=== PATIENT | female | born 1960 | race Caucasian/White ===

== ENCOUNTER 2024-02-21 14:27 | Emergency (ER) | payer OTHER, SELFPAY ==
[2024-02-21] VITALS (17 sets, daily range): BP systolic 118–165; BP diastolic 74–97; PULSE 62–72; TEMP 36.4; O2SAT 96–99; BMI 34.3
--- NOTE | 2024-02-21 14:42 | ECG_ITS ---
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
[2024-02-21 14:57] LABS: Basophils Percent Auto 0.5 % (0.2-2.0); Eosinophils Absolute Auto 0.1 10^3/uL (0.0-0.7); Eosinophils Percent Auto 1.3 % (0.9-7.0); Hematocrit 42.1 % (36.0-48.0); Hemoglobin 13.8 g/dL (12.0-16.0); Immature Granulocytes Abs Auto 0.01 10^3/uL (0.00-0.03); Immature Granulocytes Pct Auto 0.1 % (0.0-0.5); Lymphocytes Absolute Auto 2.9 10^3/uL (1.2-3.8); Mean Corpuscular HGB Conc 32.8 g/dL (29.9-35.2); Mean Corpuscular Hemoglobin 30.2 pg (26.7-34.0); Mean Corpuscular Volume 92.1 fL (81.0-99.0); Mean Platelet Volume 8.7 fL (9.5-13.5); Monocytes Absolute Auto 0.6 10^3/uL (0.3-0.8); Monocytes Percent Auto 7.5 % (1.7-12.0); Neutrophils Absolute Auto 4.8 10^3/uL (1.4-6.5); Neutrophils Percent Auto 56.6 % (43.0-75.0); Platelet Count 306 10^3/uL (150-450); Red Blood Count 4.57 10^6/uL (4.20-5.40); Red Cell Distribution Width 14.2 % (11.0-15.0); White Blood Count 8.5 10^3/uL (4.0-11.0)
--- NOTE | 2024-02-21 15:00 | ED_ITS ---
HPI - Medical Clearance General Chief complaint: Medical Clearance Stated complaint: POSSIBLE ANEURYSM PER LIFE LINE SCREENING Time Seen by Provider: 02/21/24 14:31 Source: patient Mode of arrival: walk-in Limitations: no limitations History of Present Illness HPI Narrative: The patient is coming to the ER after she had an outpatient study showing that she have abdominal aortic aneurysm, patient never had a study like this recently she had 1 almost more than 2 years ago. The patient denies any abdominal pain nausea vomiting She mentioned that she have sometimes cramping her left leg but right now she had no complaint Patient have history of smoking cigarettes she quit more than 10 years ago The patient have history of hypertension she has been taking medication regularly she has not been to her primary care doctor for a while Related Information Home Medications ?Medication ?Instructions ?Recorded ?Confirmed benazepril 20 mg tablet 20 mg PO DAILY 02/21/24 02/21/24 citalopram 40 mg tablet 40 mg PO DAILY 02/21/24 02/21/24 metoprolol tartrate 50 mg tablet 50 mg PO BID 02/21/24 02/21/24 Allergies Allergy/AdvReac Type Severity Reaction Status Date / Time No Known Drug Allergies Allergy Verified 02/21/24 14:34 Review of Systems ROS Status of ROS 10 or more systems reviewed and unremark able except as noted in history and below Exam Narrative Exam Narrative: Nurses notes and vital signs reviewed and patient is not hypoxic. General: Well-appearing and in no apparent distress. Skin: Warm, dry, no pallor noted. No rash. Head: Normocephalic, atraumatic. Neck: Supple, non-tender. Eye: Pupils are equal, round and EOMI. No scleral icterus. Ears, Nose, Mouth, and Throat: TM are clear, no nasal mucosal hypertrophy. Oral mucosa is moist, no posterior oropharynx erythema, uvula is mid-line Cardiovascular: Regular Rate and Rhythm without murmur, gallop or rub. Respiratory: No accessory muscle use or respiratory distress. Lungs are clear to auscultation, no wheezing, rales or rhonchi Chest Wall: no tenderness Back: No midline thoracic or lumbar vertebral tenderness. No CVA tenderness Musculoskeletal: normal ROM, no calf or popliteal tenderness, no lower extremity edema/swelling, patient have good anterior tibial pulse GI: Abdomen is soft, non-distended. Normal bowel sounds. No masses appreciated. No tenderness to palpation. No rebound, guarding, or rigidity noted. Neurological: A&O x4. No cranial nerve dysfunction observed. No truncal ataxia. Moves all extremities. Sensation intact. Psychiatric: Cooperative and interactive. Normal mood and affect. Constitutional Vital Signs, click to edit/add: Last Vital Signs Temp 97.5 F L 02/21/24 14:34 Pulse 67 02/21/24 16:50 Resp 25 H 02/21/24 16:50 BP 130/84 02/21/24 16:30 Pulse Ox 97 02/21/24 16:40 O2 Del Method Room Air 02/21/24 14:34 Course Vital Signs Vital signs: Vital Signs Temperature 97.5 F L 02/21/24 14:34 Pulse Rate 70 02/21/24 14:34 Respiratory Rate 18 02/21/24 14:34 Blood Pressure 165/94 H 02/21/24 14:34 Pulse Oximetry 98 02/21/24 14:34 Oxygen Delivery Method Room Air 02/21/24 14:34 Temperature 97.5 F L 02/21/24 14:34 Pulse Rate 67 02/21/24 16:50 Respiratory Rate 25 H 02/21/24 16:50 Blood Pressure 130/84 02/21/24 16:30 Pulse Oximetry 97 02/21/24 16:40 Oxygen Delivery Method Room Air 02/21/24 14:34 MDM - Medical Clearance MDM Narrative Medical decision making narrative: EKG showing sinus rhythm with a heart rate of [address] elevation or depression CBC chemistry showed no acute significant pathology the patient case was discussed with Dr. Boudreaux and vascular surgery and the plan was to get a CT angio of the abdomen that was done and the results showed 5.3 cm x 5.1 cm aortic aneurysm in the abdomen There was no acute symptom and there was no leak or any acute finding on the CAT scan the patient was to see the vascular surgeon Dr. Boudreaux on Patient otherwise will come back and is a new symptoms or concerns her blood pressure was controlled and she had no acute issue in the ER Lab Data Labs: Lab Results 02/21/24 Range/Units 14:49 WBC 8.5 (4.0-11.0) 10^3/uL RBC 4.57 (4.20-5.40) 10^6/uL Hgb 13.8 (12.0-16.0) g/dL Hct 42.1 (36.0-48.0) % MCV 92.1 (81.0-99.0) fL MCH 30.2 (26.7-34.0) pg MCHC 32.8 (29.9-35.2) g/dL RDW 14.2 (11.0-15.0) % Plt Count 306 (150-450) 10^3/uL MPV 8.7 L (9.5-13.5) fL Neut % (Auto) 56.6 (43.0-75.0) % Lymph % (Auto) 34.0 (20.5-60.0) % Daggett % (Auto) 7.5 (1.7-12.0) % Eos % (Auto) 1.3 (0.9-7.0) % Baso % (Auto) 0.5 (0.2-2.0) % Neut # (Auto) 4.8 (1.4-6.5) 10^3/uL Lymph # (Auto) 2.9 (1.2-3.8) 10^3/uL Daggett # (Auto) 0.6 (0.3-0.8) 10^3/uL Eos # (Auto) 0.1 (0.0-0.7) 10^3/uL Baso # (Auto) 0.0 (0.0-0.1) 10^3/uL Abs Immat Gran (auto) 0.01 (0.00-0.03) 10^3/uL Imm/Tot Granulo (auto) 0.1 (0.0-0.5) % Sodium 137 (136-145) mmol/L Potassium 4.2 (3.5-5.1) mmol/L Chloride 102 (98-107) mmol/L Carbon Dioxide 27.2 (21.0-32.0) mmol/L Anion Gap 12.0 BUN 21.0 H (7.0-18.0) mg/dL Creatinine 0.93 (0.55-1.02) mg/dL Est GFR ( Amer) >60 (>=60) Est GFR (Non-Af Amer) >60 (>=60) BUN/Creatinine Ratio 22.6 Glucose 110 H (74-106) mg/dL Calcium 8.9 (8.5-10.1) mg/dL Total Bilirubin 0.3 (0.2-1.0) mg/dL AST 22 (15-37) U/L ALT 28 (14-59) U/L Alkaline Phosphatase 73 (46-116) U/L Troponin I High Sens 5.6 (4.0-51.3) pg/mL Total Protein 7.1 (6.4-8.2) g/dL Albumin 3.6 (3.4-5.0) g/dL Globulin 3.5 g/dL Albumin/Globulin Ratio 1.0 Discharge Plan Discharge Stand Alone Forms: Work/School Release, Portal Instructions Chief Complaint: Medical Clearance Clinical Impression: Abdominal aortic aneurysm Qualifiers: Abdominal aorta location: unspecified Presence of rupture: without rupture Qualified Code(s): I71.40 - Abdominal aortic aneurysm, without rupture, unspecified Patient Disposition: Home, Self-Care Time of Disposition Decision: 16:44 Condition: Good Mode of Transportation: Private Vehicle Prescriptions / Home Meds: No Action benazepril 20 mg tablet 20 mg PO DAILY citalopram 40 mg tablet 40 mg PO DAILY metoprolol tartrate 50 mg tablet 50 mg PO BID Print Language: Macanese Instructions: Nonruptured Abdominal Aortic Aneurysm (DC), Aortic Disease (DC) Referrals: Eunice Casas DO [Primary Care Provider] - 1 week Carolann Boudreaux MD [Physician] - 02/23/24 ([address], [facility] D Phone number : [phone] [place] [address]) Discharge Date/Time: 02/21/24 16:59
[2024-02-21 15:17] LABS: Alanine Aminotransferase 28 U/L (14-59); Albumin Level 3.6 g/dL (3.4-5.0); Alkaline Phosphatase 73 U/L (46-116); Aspartate Amino Transferase 22 U/L (15-37); BUN Creatinine Ratio 22.6; Bilirubin Total 0.3 mg/dL (0.2-1.0); Calcium 8.9 mg/dL (8.5-10.1); Carbon Dioxide 27.2 mmol/L (21.0-32.0); Chloride 102 mmol/L (98-107); Estimated GFR (African America >60 (>=60); Estimated GFR (Non-African Ame >60 (>=60); Globulin 3.5 g/dL; Glucose 110 mg/dL (74-106); Potassium 4.2 mmol/L (3.5-5.1); Sodium 137 mmol/L (136-145); Total Protein 7.1 g/dL (6.4-8.2); Troponin I High Sensitivity 5.6 pg/mL (4.0-51.3)
[2024-02-21] MEDS: 0.9 % SODIUM CHLORIDE 1,000 ML 500 ML IV (15:33)
--- NOTE | 2024-02-21 15:48 | CT_ITS ---
[address] [address] Patient Name: PARVIZ JAIN MRN: [id number] date: 1960 Sex: F Assigned Patient Location: ER Current Patient Location: Accession/Order Number: [id number] Exam Date: 02/21/2024 15:40 Report Date: 02/21/2024 16:18 At the request of: MIKE BOB Procedure: CT angio abdomen pelvis EXAMINATION: CT angio abdomen pelvis HISTORY: AAA hx COMPARISON: No relevant comparison available. TECHNIQUE: Axial, Coronal, and Sagittal CT images without and with IV contrast. Multi-planar/3-D imaging to optimize visualization of vascular anatomy. Dose reduction techniques were achieved by using automated exposure control and/or adjustment of mA and/or kV according to patient size and/or use of iterative reconstruction technique. FINDINGS: AORTA/VASCULAR: Fusiform dilation of infrarenal aorta, 5.3 x 5.1 cm. Dilation of right common iliac artery, 2.5 cm. Normal caliber left iliac arteries. Moderate atherosclerotic disease. CELIAC ARTERY: Normal celiac vessels. SMA: Normal mesenteric vessels. RENAL ARTERIES: Normal renal vessels. LUNG BASES: No visible pulmonary or pleural disease. LIVER: Fatty infiltration. BILIARY: No visible dilatation or calcification. PANCREAS: No lesion, fluid collection, ductal dilatation, or atrophy. SPLEEN: No enlargement or focal lesion. ADRENALS: No mass or enlargement. KIDNEYS: Cortical thinning/scarring of right kidney of uncertain etiology. Unremarkable left kidney. No mass, obstruction, or calcification. BOWEL/MESENTERY: No visible mass, obstruction, or bowel wall thickening. RETROPERITONEUM: No mass or adenopathy. LYMPH NODES: No adenopathy. URINARY BLADDER: No visible focal wall thickening, lesion, or calculus. PELVIC ORGANS: No visible mass. Pelvic organs appropriate for patient age. ABDOMINAL WALL: Tiny fat filled umbilical hernia without strangulation. BONES: Posterior mechanical fusion L5-S1 with posterior decompression. Marked disc space narrowing L5-S1. OTHER: Negative. CT/CT angio abdomen pelvis IMPRESSION: 1. Fusiform, marked aneurysmal dilation of infrarenal aorta, 5.3 x 5.1 cm. No evidence of leakage. 2. Fatty infiltration of the liver. Electronically authenticated by: JAY FLORES Date: 02/21/2024 16:18
== END 2024-02-21 16:59 | disposition home or self-care (01) ==
PROVIDERS: Emergency Provider Emergency Medicine; PCP Family Medicine
DX: I71.40 Abdominal aortic aneurysm, without rupture, unspecified (principal); Z87.891 Personal history of nicotine dependence
CPT/HCPCS: 36415; 74174; 80053; 84484; 85025; 93005; 99285; Q9967